=== PATIENT | male | born 1945 | race Two or more races ===

== ENCOUNTER 2016-11-02 12:59 | Outpatient (CLI) | payer MEDICARE, MEDICAID ==
[2016-11-02] MEDS ORDERED: CRESTOR10 M2 ORAL (13:54)
[2016-11-02] MEDS ORDERED: AMOX TR-K CLV1 EAC2 ORAL (13:54)
[2016-11-02] MEDS ORDERED: METOPROLOL SUC200 MG ORAL (13:54)
[2016-11-02] MEDS ORDERED: CYCLOBENZAPRINE10 MG ORAL (13:54)
[2016-11-02] MEDS ORDERED: ZANTAC150 MG ORAL (13:54)
[2016-11-02] MEDS ORDERED: RESTASIS1 EACH BOTH EYES (13:54)
[2016-11-02] MEDS ORDERED: PAZEO2.5 ML OP (13:54)
[2016-11-02] MEDS ORDERED: TAMSULOSIN HCL0.4 MG ORAL (13:54)
[2016-11-02] MEDS ORDERED: PROCTOCREAM-HC30 GM RC (13:54)
[2016-11-02] MEDS ORDERED: ASPIR 8181 MG ORAL (13:54)
[2016-11-02] MEDS ORDERED: DEXILANT60 MG ORAL (13:54)
[2016-11-02] MEDS ORDERED: MELOXICAM7.5 MG PO (13:54)
--- NOTE | 2016-11-02 13:58 | GI Initial Consult Note ---
History of Present Illness General Date patient seen: November 02, 2016 Time patient seen: 13:48 Reason for Consultation: SCREENING COLONOSCOPY Present Illness HPI 71 year old male patient presents today for routine colonoscopy screening. Patient has hx of GERD. Denies any weight unintentional weight loss. Last EGD documented in 2012. Last colonoscopy over 10 years ago. No general GI complaints by patient at this time. Home Meds Reported Medications Cyclobenzaprine Hcl* (FLEXERIL*) 10 Mg Tablet, 10 MG ORAL THREE TIMES A DAY, TAB 11/02/16 Ranitidine Hcl* (ZANTAC*) 150 Mg Tablet, 150 MG ORAL DAILY, #30 TAB 0 Refills 11/02/16 Dexlansoprazole (Dexilant) 60 Mg Cap.drZainabp, 60 MG ORAL DAILY, CAP 11/02/16 Metoprolol Succinate (METOPROLOL SUCCINATE) 200 Mg Tab.er.24h, 25 MG ORAL DAILY , TAB 11/02/16 Rosuvastatin Calcium* (CRESTOR*) 10 Mg Tablet, 5 MG ORAL DAILY, TAB 11/02/16 Aspirin* (ASPIR 81*) 81 Mg Tablet.dr, 81 MG ORAL DAILY, TAB 11/02/16 Amoxicillin/Potassium Clav 875-125 Mg Tab* (AMOX TR-K CLV 875-125 MG TAB*) 1 Each Tablet, 1 TAB ORAL EVERY 12 HOURS, TAB 11/02/16 Cyclosporine (RESTASIS) 1 Each Droperette, 1 DROP BOTH EYES EVERY 12 HOURS, #1 EA 0 Refills 11/02/16 Olopatadine HCl (Pazeo) 2.5 Ml Drops, 2.5 ML OP, ML 11/02/16 Hydrocortisone (Proctozone-Hc) 30 Gm Cream.appl, 30 GM RC, GM 11/02/16 Tamsulosin Hcl (TAMSULOSIN HCL*) 0.4 Mg Cap.er.24h, 0.4 MG ORAL BEDTIME, CAP 11/02/16 Meloxicam* (MELOXICAM*) 7.5 Mg Tablet, 7.5 MG PO DAILY, TAB 11/02/16 Med list reviewed/reconciled: Yes Allergies: Coded Allergies: No Known Allergies (Unverified , 11/02/16) Patient History History Provided By: Patient PMH Narrative GERD CAD + STENT HTN BPH Hemorrhoids Social History: Reports: other - coffee Review of Systems All Other Systems: negative except mentioned in HPI Physical Exam T 97.5 BP 136/71 P 63 96 RA WT 185.1 lbs (denies any weight loss) Sp02 EP Interpretation: reviewed General Appearance: well appearing, no apparent distress, alert Head: normocephalic EENT: normal ENT inspection Neck: full range of motion, supple Respiratory: normal breath sounds, no respiratory distress Cardiovascular: normal rate Gastrointestinal: non tender, soft, normal bowel sounds Rectal: deferred Musculoskeletal: back normal Neurologic: normal inspection, alert, oriented x3, responsive Psychiatric: normal inspection, judgement/insight normal, memory normal Skin: normal inspection, normal color, no rash, warm/dry Lymphatic: normal inspection, no adenopathy GI: Plan Problems: (1) GERD (gastroesophageal reflux disease) (2) Colonoscopy planned (3) CAD (coronary artery disease) (4) HTN (hypertension) (5) BPH (benign prostatic hyperplasia) Plan EGD/colonoscopy scheduled for 11/16/16 - CLD and SuPrep instructions given and acknowledged. Seen with Dr. Cardoso. Eusebia Byers N.P. November 02, 2016 13:58
== END 2016-11-02 13:45 | disposition home or self-care (01) ==
LOC: PAN 12:59
DX: K21.9 Gastro-esophageal reflux disease without esophagitis (principal); I25.10 Atherosclerotic heart disease of native coronary artery without angina pectoris; I10 Essential (primary) hypertension; N40.0 Benign prostatic hyperplasia without lower urinary tract symptoms; Z95.5 Presence of coronary angioplasty implant and graft; Z79.82 Long term (current) use of aspirin
CPT/HCPCS: 99211

== ENCOUNTER 2016-11-16 09:27 | Day surgery (SDC) | payer MEDICARE, MEDICAID ==
[2016-11-16] VITALS (9 sets, daily range): BP systolic 131–151; BP diastolic 72–79
[~2016-11-16] VITALS: Ht 167.6 cm; Wt 81.6 kg
[~2016-11-16 09:27] MED LIST: AMOX TR-K CLV1 EAC2 ORAL; ASPIR 8181 MG ORAL; CRESTOR10 M2 ORAL; CYCLOBENZAPRINE10 MG ORAL; DEXILANT60 MG ORAL; MELOXICAM7.5 MG PO; METOPROLOL SUC200 MG ORAL; PAZEO2.5 ML OP; PROCTOCREAM-HC30 GM RC; RESTASIS1 EACH BOTH EYES; TAMSULOSIN HCL0.4 MG ORAL; ZANTAC150 MG ORAL
--- NOTE | 2016-11-16 10:03 | Pre-Procedure Note/Attestation ---
Pre-Procedure Note/Attestation Complete Prior to Procedure Planned Procedure: not applicable Procedure Narrative: egd/colonoscopy Indications for Procedure Pre-Operative Diagnosis: SCreening colon, GERD Attestation I attest that I discussed the nature of the procedure; its benefits; risks and complications; and alternatives (and the risks and benefits of such alternatives ), prior to the procedure, with the patient (or the patient's legal technical sales representatives). I attest that, if there was a reasonable possibility of needing a blood transfusion, the patient (or the patient's legal technical sales representatives) was given the [facility] standardized written summary, pursuant to the Jakob Robert Blood Safety Act ([place] Health and Safety Code # 1645, as amended). I attest that I re-evaluated the patient just prior to the surgery and that there has been no change in the patient's H&P, except as documented below: CHIARA PÉREZ Nov 16, 2016 10:03
[2016-11-16] MEDS ORDERED: Midazolam 2mg/2ml Inj ONE (10:30)
[2016-11-16] MEDS ORDERED: LR 1000ml ONE (10:30)
[2016-11-16] MEDS ORDERED: fentaNYL 100 mcg/2 mL IV ONE (10:30)
[2016-11-16] MEDS ORDERED: Propofol 10mg/ml 20ml IV ONE (10:30)
[2016-11-16] MEDS ORDERED: LR 1000ml 1,000 ML IVLG SCH (10:47)
--- NOTE | 2016-11-16 10:47 | Anethesia Preoperative Eval ---
Anesthesia Pre-op PMH/ROS General Date of Evaluation: Nov 16, 2016 Time of Evaluation: 10:20 Anesthesiologist: Serge ASA Score: ASA 2 Mallampati Score Class I : Soft palate, uvula, fauces, pillars visible Class II: Soft palate, uvula, fauces visible Class III: Soft palate, base of uvula visible Class IV: Only hard plate visible Mallampati Classification: Class II Surgeon: Walker Diagnosis: Abdminal pain Surgical Procedure: EGD Colonoscopy Anesthesia History: none Family History: no anesthesia problems Allergies: Coded Allergies: No Known Allergies (Unverified , 11/02/16) Medications: see eMAR Past Medical History Cardiovascular: Reports: CAD - stable stent in place, HTN, Denies: [place], arrhythmia, other, valve dz Pulmonary: Denies: COPD, DEMETRIUS, asthma, other Gastrointestinal/Genitourinary: Reports: GERD, Denies: CRI, ESRD, other Neurologic/Psychiatric: Denies: CVA, TIA, dementia, depression/anxiety, other Endocrine: Denies: DM, hypothyroidism, other, steroids HEENT: Denies: [place] (L), [place] (R), cataract (L), cataract (R), glaucoma, other Hematology/Immune: Denies: DVT, anemia, bleeding disorder, other Musculoskeletal/Integumentary: Denies: DDD, DJD, OA, RA, edema, other PMH Narrative: as above PSxH Narrative: see chart Anesthesia Pre-op Phys. Exam Physician Exam Last Vital Signs Date Time Temp Pulse Resp B/P Pulse Ox O2 Delivery O2 Flow Rate FiO2 11/16/16 10:01 98.4 68 20 151/77 97 Room Air Constitutional: NAD Neurologic: CN 2-12 intact Cardiovascular: RRR, no M/R/G Respiratory: CTA Gastrointestinal: S/NT/ND Airway Exam Mallampati Score: Class II MO: full Neck: flexible Teeth: intact Dentures: no lower, no upper Anesthesia Pre-op A/P Labs see chart Studies Pre-op Studies: EKG - NSR Risk Assessment & Plan Assessment: ASA 2 Plan: MAC Status Change Before Surgery: No Pre-Antibiotics Drug: none MALDONADO LILLY M.D. Nov 16, 2016 10:47
--- NOTE | 2016-11-16 10:53 | Endoscopy Procedure Note ---
Endoscopy Procedure Note Indication for Procedure: gerd, screening colon Procedures Performed: EGD, colonoscopy Operative Findings/Diagnosis: gastritis, hemorrhoids Specimen: yes Pt Tolerated Procedure Well: Yes Estimated Blood Loss: none Anesthesiologist: giuliano Anesthesia: MAC Implant(s) used?: No 50 yrs or older w/o bx or poly: Yes 10yrs. F/U not recommended: Yes If not recommended, why?: Above average risk 10 yrs. F/U needed: Yes 18 years or older w/prev. colo: Yes <3yrs. since last colonoscopy: No CHIARA PÉREZ Nov 16, 2016 10:53
[2016-11-16] MEDS ORDERED: DiphenhydrAMINE 50mg/ml Inj IVP PRN (11:00)
[2016-11-16] MEDS ORDERED: Meperidine 25mg/0.5ml Inj IV PRN (11:00)
--- NOTE | 2016-11-16 11:05 | Immediate Post-Op Evaluation ---
Immediate Post-Op Evalulation Immediate Post-Op Evalulation Procedure: EGD Colonoscopy Date of Evaluation: Nov 16, 2016 Time of Evaluation: 11:04 IV Fluids: 300 Blood Products: none Estimated Blood Loss: none Urinary Output: none Blood Pressure Systolic: 128 Blood Pressure Diastolic: 74 Pulse Rate: 63 Respiratory Rate: 20 O2 Sat by Pulse Oximetry: 98 Temperature (Fahrenheit): 97.4 Pain Score (1-10): 1 Nausea: No Vomiting: No Complications none Patient Status: reacts, patent, none Hydration Status: adequate MALDONADO LILLY M.D. Nov 16, 2016 11:05
--- NOTE | 2016-11-16 11:06 | 48 Hour Post Anesthesia Eval ---
Post Anesthesia Evaluation Procedure: EGD Colonoscopy Date of Evaluation: Nov 16, 2016 Time of Evaluation: 12:10 Blood Pressure Systolic: 136 0: 72 Pulse Rate: 61 Respiratory Rate: 20 Temperature (Fahrenheit): 97.6 O2 Sat by Pulse Oximetry: 98 Airway: patent Nausea: No Vomiting: No Pain Intensity: 2 Hydration Status: adequate Cardiopulmonary Status: stable Mental Status/LOC: patient returned to baseline Follow-up Care/Observations: n/a Post-Anesthesia Complications: none Follow-up care needed: ready to discharge MALDONADO LILLY M.D. Nov 16, 2016 11:06
--- NOTE | 2016-11-16 16:30 | Procedure Note ---
DATE OF PROCEDURE: 11/16/2016 SURGEON: Kojo Cardoso M.D. PROCEDURE: Upper endoscopy with biopsy and colonoscopy. ANESTHESIOLOGIST: Brent Valentine M.D. INSTRUMENT: Olympus adult flexible endoscope and colonoscope. INDICATION: Screening colonoscopy evaluation, chronic acid reflux disease, gastroesophageal reflux disease. PROCEDURE: The procedure, risks, benefits, and possible consequences, including hemorrhage, aspiration, perforation and infection, and alternative treatments, were explained to the patient/legal guardian by Dr. Kojo Cardoso and the patient/legal guardian understood and accepted these risks. After informed consent was obtained and the patient was adequately sedated, Olympus upper endoscope was advanced from mouth into the second portion of the duodenum and retroflexion performed in the stomach. The patient had minimum gastritis. Random biopsy from antrum was obtained to rule out H. pylori infection, otherwise the rest of the upper endoscopic examination grossly within normal limits. At this time, the upper endoscope was retrieved and the patient was turned over colonoscopy. First, a rectal exam was performed, which was normal. Then, the scope was advanced from the rectum into the cecum documented by appendiceal orifice, ileocecal valve, and right upper quadrant palpation. Quality of prep was very good. The patient normal colonoscopy examination without any mass, polyp, diverticulosis, or any pathology. Retroflexion of rectum showed evidence of small internal hemorrhoids. The patient tolerated the procedure very well without complication. SUMMARY OF FINDINGS: 1. Gastritis status post biopsy. 2. Internal hemorrhoid, otherwise normal colonoscopy examination. RECOMMENDATIONS: 1. Follow up biopsies and treat accordingly. 2. We will recommend repeat colonoscopy in 10 years. Kojo Cardoso M.D. DR: Aurora JOB#: [id number] CC:
--- NOTE | 2016-11-17 09:09 | Cardiology Report ---
APPROVED REPORT EKG Measurement Heart [id number] AL [id number] Normal sinus rhythm with sinus arrhythmia Normal ECG
--- NOTE | 2016-11-30 14:30 | Short Stay Surgery H&P ---
History of Present Illness History of Present Illness Chief Complaint see recent consult note HPI Zechariah Ernandez is a 71 year old male who was admitted on for Gerd/Colon Screening Patient History Allergies: Coded Allergies: No Known Allergies (Unverified , 11/02/16) PAST MEDICAL HISTORY: Past Surgeries: Social History: Medication History Scheduled Aspirin* (Aspir 81*), 81 MG ORAL DAILY, (Reported) Cyclosporine (Restasis), 1 DROP BOTH EYES EVERY 12 HOURS, (Reported) Dexlansoprazole (Dexilant), 60 MG ORAL DAILY, (Reported) Metoprolol Succinate (Metoprolol Succinate), 25 MG ORAL DAILY, (Reported) Rosuvastatin Calcium* (Crestor*), 5 MG ORAL DAILY, (Reported) Tamsulosin Hcl (Tamsulosin Hcl*), 0.4 MG ORAL BEDTIME, (Reported) Plan Attestation Are the patient's medical conditions optimized for surgery? CHIARA PÉREZ Nov 30, 2016 14:30
== END 2016-11-16 12:10 | disposition home or self-care (01) ==
LOC: GAS 09:27
DX: Z12.11 Encounter for screening for malignant neoplasm of colon (principal); K64.8 Other hemorrhoids; K21.9 Gastro-esophageal reflux disease without esophagitis; K29.50 Unspecified chronic gastritis without bleeding; I25.10 Atherosclerotic heart disease of native coronary artery without angina pectoris; I10 Essential (primary) hypertension; Z95.5 Presence of coronary angioplasty implant and graft; Z79.82 Long term (current) use of aspirin
CPT/HCPCS: 43239; 93005; G0121; J2250; J2704; J3010; J7120; 94003; 94150

== ENCOUNTER 2018-11-26 12:51 | Outpatient (CLI) | payer MEDICARE, MEDICAID ==
[2018-11-26 13:17] VITALS: BP 129/68
--- NOTE | 2018-11-26 13:48 | General Progress Note ---
Assessment/Plan Problem List: (1) Constipation ICD Codes: K59.00 - Constipation, unspecified SNOMED: 11876124 (2) Hemorrhoids ICD Codes: K64.9 - Unspecified hemorrhoids SNOMED: 59104144 (3) BPH (benign prostatic hyperplasia) ICD Codes: N40.0 - Benign prostatic hyperplasia without lower urinary tract symptoms SNOMED: 359621031, 961844599 (4) HTN (hypertension) ICD Codes: I10 - Essential (primary) hypertension SNOMED: 41085744 (5) GERD (gastroesophageal reflux disease) ICD Codes: K21.9 - Gastro-esophageal reflux disease without esophagitis SNOMED: 444614250 (6) CAD (coronary artery disease) ICD Codes: I25.10 - Atherosclerotic heart disease of [place] coronary artery without angina pectoris SNOMED: 26062670 Assessment/Plan: last colonoscopy in 2016 plan repeat 2021 add miralax and consider linzess if no improvement cont Dexilant 30 mg anusol HC\ Subjective ROS Limited/Unobtainable: Yes Allergies: Coded Allergies: No Known Allergies (Unverified , 11/02/16) Objective Last 24 Hour Vital Signs Date Time Temp Pulse Resp B/P (MAP) Pulse Ox O2 Delivery O2 Flow Rate FiO2 11/26/18 13:17 98.0 65 18 129/68 (88) 97 General Appearance: alert EENT: normal ENT inspection Neck: supple Cardiovascular: normal rate Respiratory/Chest: lungs clear Abdomen: normal bowel sounds, non tender, soft Extremities: non-tender Kojo Cardoso MD Nov 26, 2018 13:48
== END 2018-11-26 15:44 | disposition home or self-care (01) ==
LOC: PAN 12:51
DX: K59.00 Constipation, unspecified (principal); K64.9 Unspecified hemorrhoids; N40.0 Benign prostatic hyperplasia without lower urinary tract symptoms; I10 Essential (primary) hypertension; K21.9 Gastro-esophageal reflux disease without esophagitis; I25.10 Atherosclerotic heart disease of native coronary artery without angina pectoris
CPT/HCPCS: 99212